=== PATIENT | female | born 1990 | race Caucasian/White ===

== ENCOUNTER 2020-12-14 21:23 | Outpatient (CLI) | payer OTHER ==
[~2020-12-14 21:23] MED LIST: NAPROSYN500 MG PO; OMNICEF 300 MG300 MG PO; ONDANSETRON ODT4 MG PO
== END 2020-12-15 00:34 | disposition home or self-care (01) ==
LOC: GENOP 21:23
DX: O36.8130 Decreased fetal movements, third trimester, not applicable or unspecified (principal); O26.893 Other specified pregnancy related conditions, third trimester; R51.9 Headache, unspecified; R11.10 Vomiting, unspecified; M54.9 Dorsalgia, unspecified; Z3A.29 29 weeks gestation of pregnancy
CPT/HCPCS: 81001; 96360; 96361; 96367; 96374; 96375; C9113; J2405; J2550; J7120

== ENCOUNTER 2021-01-14 15:56 | Outpatient (CLI) | payer OTHER ==
[~2021-01-14] VITALS: Ht 167.6 cm; Wt 86.6 kg
[2021-01-14 18:23] LABS: RED BLOOD COUNT 3.74 M/UL (4.00-5.10)
[2021-01-14 18:36] LABS: BUN/CREATININE RATIO 11 (0-10)
== END 2021-01-15 09:10 | disposition home or self-care (01) ==
LOC: GENOP 15:56
PROVIDERS: Obstetrics & Gynecology
DX: O13.3 Gestational [pregnancy-induced] hypertension without significant proteinuria, third trimester (principal); O99.891 Other specified diseases and conditions complicating pregnancy; R10.31 Right lower quadrant pain; R00.2 Palpitations; O99.333 Smoking (tobacco) complicating pregnancy, third trimester; F17.210 Nicotine dependence, cigarettes, uncomplicated; O99.843 Bariatric surgery status complicating pregnancy, third trimester; Z88.1 Allergy status to other antibiotic agents; Z3A.32 32 weeks gestation of pregnancy
CPT/HCPCS: 59025; 80053; 81001; 82570; 84156; 85025; J0702

== ENCOUNTER 2021-01-20 11:17 | Outpatient (CLI) | payer OTHER ==
[2021-01-20 15:33] LABS: HEMOGLOBIN 11.1 gm/dl (12.3-15.3); RED BLOOD COUNT 3.5 M/UL (4.00-5.10)
[2021-01-20 15:59] LABS: BUN/CREATININE RATIO 17 (0-10)
== END 2021-01-20 17:23 | disposition home or self-care (01) ==
LOC: GENOP 11:17
PROVIDERS: Obstetrics & Gynecology
DX: O13.9 Gestational [pregnancy-induced] hypertension without significant proteinuria, unspecified trimester (principal); Z3A.00 Weeks of gestation of pregnancy not specified
CPT/HCPCS: 36415; 80053; 81001; 82570; 84156; 84550; 85025; 85384; 85610; 85730; G0463

== ENCOUNTER 2022-01-27 03:19 | Emergency (ER) | payer OTHER ==
[2022-01-27 04:24] LABS: HEMOGLOBIN 14.1 gm/dl (12.3-15.3); RED BLOOD COUNT 4.65 M/UL (4.00-5.10); WHITE BLOOD COUNT 7.4 K/UL (4.5-11.0)
[2022-01-27] MEDS ORDERED: LEVOFLOXACIN500 MG PO (06:27)
[2022-01-27] MEDS ORDERED: PERCOCET 5/325 T1 EA PO (06:27)
[2022-01-30 01:09] LABS: CHLAMYDIA TRACHOMATIS, NAA Negative (Negative); NEISSERIA GONORRHOEAE, NAA Negative (Negative)
== END 2022-01-27 06:55 | disposition home or self-care (01) ==
LOC: ER1 03:19
PROVIDERS: Family Medicine; Physician Assistant
DX: N34.2 Other urethritis (principal); F17.290 Nicotine dependence, other tobacco product, uncomplicated; Z88.0 Allergy status to penicillin; Z88.1 Allergy status to other antibiotic agents
CPT/HCPCS: 80053; 81001; 84703; 85025; 87086; 96374; 96375; 99284; J1956; J2270; J2405